=== PATIENT | female | born 2000 | race Caucasian/White ===

== ENCOUNTER 2019-07-28 19:25 | Emergency (ER) | payer MEDICAID ==
[~2019-07-28] VITALS: Ht 152.4 cm; Wt 54.0 kg
[2019-07-28 19:28] VITALS: BP 106/57
--- NOTE | 2019-07-28 19:57 | NUR ---
PT STATES HER LEGS ARE SWOLLEN. HER LEGS ARE MILDY SWOLLEN, NO PAIN. MILD REDNESS, STATES SHE HAD SUNBURN. STATES WHEN SHE SETANDS FOR AWHILE HER LEGS HURT.
== END 2019-07-28 20:06 | disposition home or self-care (01) ==
LOC: ER 19:27
DX: L55.9 Sunburn, unspecified (principal); R22.43 Localized swelling, mass and lump, lower limb, bilateral
CPT/HCPCS: 99282

== ENCOUNTER 2019-11-24 15:45 | Emergency (ER) | payer MEDICAID ==
[~2019-11-24] VITALS: Ht 152.4 cm; Wt 54.1 kg
[2019-11-24 15:55] VITALS: BP 124/82
[2019-11-24 16:46] LABS: CLARITY,URINE CLEAR (Clear); COLOR,URINE STRAW (Yellow); GLUCOSE, URINE NEGATIVE (Neg); KETONES,URINE NEGATIVE (Neg); LEUKOCYTE ESTERASE ,URINE NEGATIVE (Neg); NITRITES, URINE NEGATIVE (Neg); OCCULT BLOOD,URINE NEGATIVE (Neg); PROTEIN,URINE NEGATIVE (Neg); UROBILINOGEN,URINE 0.2 E.U/dL (0.2-1.0)
[2019-11-24 16:51] LABS: UA COLLECTION TYPE CLN CATCH MIDSTREAM
[2019-11-24 16:55] LABS: URINE HCG NEGATIVE (NEG)
[2019-11-24] MEDS ORDERED: ketorolac tromethamine 15mg/ml inj. IM ONE (17:00)
[2019-11-24] MEDS ORDERED: ondansetron 4mg rapidly disintigrating tab PO ONE (17:00)
[2019-11-24] MEDS ORDERED: CYCL-1 PO (17:06)
[2019-11-24] MEDS ORDERED: ONDA4TAB6 PO (17:06)
== END 2019-11-24 17:32 | disposition home or self-care (01) ==
LOC: ER 15:45
DX: M25.50 Pain in unspecified joint (principal); M25.519 Pain in unspecified shoulder; M54.5 Low back pain; R11.2 Nausea with vomiting, unspecified; Z79.899 Other long term (current) drug therapy
CPT/HCPCS: 81003; 81025; 96372; 99283; J1885

== ENCOUNTER 2020-04-27 17:09 | Emergency (ER) | payer MEDICAID, OTHER ==
[~2020-04-27] VITALS: Ht 152.4 cm; Wt 53.1 kg
[~2020-04-27 17:09] MED LIST: CYCL-1 PO; ONDA4TAB6 PO
[2020-04-27 17:13] VITALS: BP 125/90
[2020-04-27] MEDS ORDERED: CYCL-1 PO (18:14)
[2020-04-27] MEDS ORDERED: ketorolac trometh. 30mg/ml inj. IM ONE (18:15)
== END 2020-04-27 18:28 | disposition home or self-care (01) ==
LOC: ER 17:09
DX: R52 Pain, unspecified (principal); M62.838 Other muscle spasm; Z72.89 Other problems related to lifestyle; Z79.899 Other long term (current) drug therapy
CPT/HCPCS: 96372; 99283; J1885

== ENCOUNTER 2020-06-28 08:35 | Emergency (ER) | payer MEDICAID ==
[~2020-06-28] VITALS: Ht 152.4 cm; Wt 50.2 kg
[2020-06-28] MEDS ORDERED: ketorolac tromethamine 15mg/ml inj. IM ONE (09:15)
[2020-06-28] MEDS ORDERED: cyclobenzaprine 10mg tablet PO ONE (09:20)
[2020-06-28 09:24] VITALS: BP 108/64
[2020-06-28] MEDS ORDERED: CYCL-1 PO (09:24)
== END 2020-06-28 09:33 | disposition home or self-care (01) ==
LOC: ER 08:36
DX: M79.18 Myalgia, other site (principal); Z79.899 Other long term (current) drug therapy
CPT/HCPCS: 96372; 99283; J1885

== ENCOUNTER 2020-06-30 10:29 | Emergency (ER) | payer MEDICAID ==
[~2020-06-30] VITALS: Ht 152.4 cm; Wt 51.0 kg
[2020-06-30 10:31] VITALS: BP 119/55
[2020-06-30] MEDS ORDERED: PENI500T2 PO (10:45)
== END 2020-06-30 10:56 | disposition home or self-care (01) ==
LOC: ER 10:30
DX: K04.7 Periapical abscess without sinus (principal); K08.89 Other specified disorders of teeth and supporting structures; Z98.818 Other dental procedure status; Z79.2 Long term (current) use of antibiotics; Z79.899 Other long term (current) drug therapy
CPT/HCPCS: 99283

== ENCOUNTER 2020-10-17 21:03 | Emergency (ER) | payer MEDICAID ==
[~2020-10-17] VITALS: Ht 152.4 cm; Wt 48.7 kg
[2020-10-17 21:15] VITALS: BP 100/47
[2020-10-17 21:45] LABS: URINE HCG NEGATIVE (NEG)
[2020-10-17 21:50] LABS: CLARITY,URINE CLEAR (Clear); COLOR,URINE YELLOW (Yellow); GLUCOSE, URINE NEGATIVE (Neg); KETONES,URINE NEGATIVE (Neg); LEUKOCYTE ESTERASE ,URINE NEGATIVE (Neg); NITRITES, URINE NEGATIVE (Neg); OCCULT BLOOD,URINE TRACE-INTACT (Neg); PH,URINE 5.5 (4.8-8.0); PROTEIN,URINE NEGATIVE (Neg); UROBILINOGEN,URINE 0.2 E.U/dL (0.2-1.0)
[2020-10-17 21:53] LABS: ALANINE AMINOTRANSFERASE 19 U/L (12-78); ALBUMIN 4.2 G/DL (3.4-5.0); ALBUMIN/GLOBULIN RATIO 1.6 (1.1-1.5); ALKALINE PHOSPHATASE 57 IU/L (20-180); ANION GAP 9 (8-16); ASPARTATE AMINO TRANSFERASE 15 U/L (10-37); BASOPHILS # (AUTO) 0.1 X10'3 (0-0.2); BASOPHILS % (AUTO) 0.5 % (0-1); BILIRUBIN,TOTAL 0.3 MG/DL (0.1-1.0); BLOOD UREA NITROGEN 22 MG/DL (7-18); BUN/CREATININE RATIO 21.2 (6.6-38.0); CALCIUM 8.5 MG/DL (8.5-10.1); CHLORIDE 103 MMOL/L (99-107); CREATININE 1.04 MG/DL (0.40-0.90); EOSINOPHILS # (AUTO) 0.2 X10'3 (0-0.9); EOSINOPHILS % (AUTO) 1.6 % (0-6); GLUCOSE 93 MG/DL (70-104); HEMATOCRIT 34.4 % (35.0-45.0); LIPASE 123 U/L (73-393); LYMPHOCYTES # (AUTO) 2.9 X10'3 (1.1-4.8); LYMPHOCYTES % (AUTO) 26.4 % (21-51); MEAN CORPUSCULAR HEMOGLOBIN 31.3 PG (27.0-31.0); MEAN CORPUSCULAR VOLUME 89.6 FL (78-98); MEAN PLATELET VOLUME 9.3 FL (7.4-10.4); MONOCYTES # (AUTO) 0.9 X10'3 (0-0.9); MONOCYTES % (AUTO) 8.2 % (2-12); NEUTROPHILS # (AUTO) 6.9 X10'3 (1.8-7.7); NEUTROPHILS % (AUTO) 63.3 % (42-75); PLATELET COUNT 195 X10'3 (140-440); RED BLOOD COUNT 3.84 X10'6 (4.20-5.60); RED CELL DISTRIBUTION WIDTH 13.3 % (11.5-14.5); SODIUM 139 MMOL/L (135-145); TOTAL CARBON DIOXIDE 27.3 MMOL/L (24-32); TOTAL PROTEIN 6.9 G/DL (6.4-8.2); WHITE BLOOD COUNT 10.8 X10'3 (4.5-11.0); eGFR 68 ML/MIN
[2020-10-17 21:58] LABS: UA COLLECTION TYPE CLN CATCH MIDSTREAM
[2020-10-17 22:00] LABS: BACTERIA,URINE NONE SEEN /HPF (Neg); RBC,URINE 0-2 /HPF (0-2); SQUAMOUS EPITHELIAL CELL,UR FEW /LPF (FEW); WBC,URINE NONE SEEN /HPF (0-4)
[2020-10-17] MEDS ORDERED: dexamethasone sod phosphate 10mg/ml inj PO STA (22:30)
[2020-10-17] MEDS ORDERED: ketorolac trometh. 30mg/ml inj. IM ONE (22:30)
[2020-10-17] MEDS ORDERED: CYCL-1 PO (22:30)
== END 2020-10-17 22:59 | disposition home or self-care (01) ==
LOC: ER 21:03
DX: M25.50 Pain in unspecified joint (principal); R19.7 Diarrhea, unspecified; Z79.899 Other long term (current) drug therapy
CPT/HCPCS: 36415; 80053; 81001; 81025; 83690; 85025; 96372; 99283; J1100; J1885

== ENCOUNTER 2020-10-31 08:27 | Emergency (ER) | payer MEDICAID ==
[~2020-10-31] VITALS: Ht 152.4 cm; Wt 48.0 kg
[2020-10-31 08:33] VITALS: BP 124/77
[2020-10-31] MEDS ORDERED: ketorolac trometh inj. 60 MG/2 ML VIAL IM ONE (10:15)
[2020-10-31] MEDS ORDERED: ketorolac tromethamine 15mg/ml inj. IM ONE (10:15)
[2020-10-31] MEDS ORDERED: DIPH-186 PO (10:32)
== END 2020-10-31 10:46 | disposition home or self-care (01) ==
LOC: ER 08:28
DX: R10.11 Right upper quadrant pain (principal); R19.7 Diarrhea, unspecified; K59.00 Constipation, unspecified; R63.0 Anorexia; Z79.899 Other long term (current) drug therapy
CPT/HCPCS: 96372; 99283; J1885

== ENCOUNTER 2021-06-23 19:10 | Emergency (ER) | payer MEDICAID ==
[~2021-06-23] VITALS: Ht 152.4 cm; Wt 50.0 kg
[~2021-06-23 19:10] MED LIST changes: +DIPH-186 PO
[2021-06-23] MEDS ORDERED: ketorolac trometh inj. 60 MG/2 ML VIAL IM ONE (21:55)
[2021-06-23] MEDS ORDERED: orphenadrine citrate 60mg/2ml inj. IM ONE (21:55)
[2021-06-23] MEDS ORDERED: IBUP-1986 PO (22:54)
[2021-06-23] MEDS ORDERED: CYCL-1 PO (22:54)
[2021-06-23 23:09] VITALS: BP 132/93
== END 2021-06-23 23:11 | disposition home or self-care (01) ==
LOC: ER 19:10
DX: M54.2 Cervicalgia (principal); M54.9 Dorsalgia, unspecified; V89.2XXA Person injured in unspecified motor-vehicle accident, traffic, initial encounter; Y93.89 Activity, other specified; Y92.89 Other specified places as the place of occurrence of the external cause; Y99.8 Other external cause status
CPT/HCPCS: 72125; 96372; 99284; J1885; J2360

== ENCOUNTER 2022-03-09 13:11 | Emergency (ER) | payer MEDICAID ==
[~2022-03-09] VITALS: Ht 152.4 cm; Wt 54.5 kg
[~2022-03-09 13:11] MED LIST changes: +IBUP-1986 PO
[2022-03-09 13:15] VITALS: BP 127/46
[2022-03-09] MEDS ORDERED: HYDROcodone/acetaminophen 5mg/325mg tablet PO STA (13:17)
[2022-03-09] MEDS ORDERED: ACET-1059 PO ×2 (17:14→17:15)
[2022-03-09] MEDS ORDERED: acetaminophen w/codeine (30MG) #3 tablet PO ONE (17:20)
--- NOTE | 2022-03-09 17:25 | NUR ---
MED ORDER POPPED UP AFTER PT WAS D\C'D - PROVIDER AWARE.
== END 2022-03-09 17:26 | disposition home or self-care (01) ==
LOC: ER 13:11
DX: S60.221A Contusion of right hand, initial encounter (principal); W22.8XXA Striking against or struck by other objects, initial encounter; Y93.89 Activity, other specified; Y92.89 Other specified places as the place of occurrence of the external cause; Y99.8 Other external cause status
CPT/HCPCS: 73130; 99283

== ENCOUNTER 2022-04-30 09:24 | Emergency (ER) | payer MEDICAID ==
[~2022-04-30] VITALS: Ht 152.4 cm; Wt 54.0 kg
[~2022-04-30 09:24] MED LIST changes: +ACET-1059 PO
[2022-04-30 09:31] VITALS: BP 122/69
[2022-04-30] MEDS ORDERED: HYDR-3965 PO (10:27)
[2022-04-30] MEDS ORDERED: MELO-100 PO (10:27)
[2022-04-30] MEDS ORDERED: CYCL-1 PO (10:27)
[2022-04-30] MEDS ORDERED: HYDROcodone/acetaminophen 5mg/325mg tablet PO ONE (10:35)
[2022-04-30] MEDS ORDERED: ibuprofen tablet 400 MG TABLET PO ONE (10:35)
[2022-04-30] MEDS ORDERED: ondansetron 4mg rapidly disintigrating tab PO ONE (10:35)
[2022-04-30] MEDS ORDERED: acetaminophen 325mg tablet PO ONE (10:35)
== END 2022-04-30 10:53 | disposition home or self-care (01) ==
LOC: ER 09:24
DX: M43.6 Torticollis (principal); F12.90 Cannabis use, unspecified, uncomplicated
CPT/HCPCS: 99284

== ENCOUNTER 2022-09-19 11:53 | Emergency (ER) | payer MEDICAID ==
[~2022-09-19] VITALS: Ht 152.4 cm; Wt 56.8 kg
[~2022-09-19 11:53] MED LIST changes: +MELO-100 PO
[2022-09-19 12:19] LABS: BASOPHILS # (AUTO) 0.1 X10'3 (0-0.2); BASOPHILS % (AUTO) 0.5 % (0-1); EOSINOPHILS % (AUTO) 0.1 % (0-6); HEMATOCRIT 43.3 % (35.0-45.0); HEMOGLOBIN 14.6 g/dl (12.0-16.0); LYMPHOCYTES # (AUTO) 1.3 X10'3 (1.1-4.8); LYMPHOCYTES % (AUTO) 6.7 % (21-51); MEAN CORPUSCULAR HEMOGLOBIN 31.5 PG (27.0-31.0); MEAN CORPUSCULAR HGB CONC 33.8 g/dL (33.0-36.5); MEAN CORPUSCULAR VOLUME 93.2 FL (78-98); MEAN PLATELET VOLUME 8.9 FL (7.4-10.4); MONOCYTES % (AUTO) 5.4 % (2-12); NEUTROPHILS # (AUTO) 16.7 X10'3 (1.8-7.7); NEUTROPHILS % (AUTO) 87.3 % (42-75); PLATELET COUNT 248 X10'3 (140-440); RED BLOOD COUNT 4.65 X10'6 (4.20-5.60); RED CELL DISTRIBUTION WIDTH 13.5 % (11.5-14.5); WHITE BLOOD COUNT 19.1 X10'3 (4.5-11.0)
[2022-09-19 12:39] LABS: ALANINE AMINOTRANSFERASE 22 U/L (12-78); ALBUMIN 4.5 G/DL (3.4-5.0); ALBUMIN/GLOBULIN RATIO 1.2 (1.1-1.5); ALKALINE PHOSPHATASE 85 IU/L (46-116); ANION GAP 16 (8-16); ASPARTATE AMINO TRANSFERASE 28 U/L (10-37); BILIRUBIN,TOTAL 0.4 MG/DL (0.1-1.0); BLOOD UREA NITROGEN 7 MG/DL (7-18); BUN/CREATININE RATIO 9.7 (10.0-20.0); CALCIUM 9.2 MG/DL (8.5-10.1); CHLORIDE 103 MMOL/L (99-107); CREATININE 0.72 MG/DL (0.40-0.90); GLUCOSE 88 MG/DL (70-104); POTASSIUM 3.8 MMOL/L (3.5-5.1); SODIUM 142 MMOL/L (135-145); TOTAL CARBON DIOXIDE 22.6 MMOL/L (24-32); TOTAL PROTEIN 8.4 G/DL (6.4-8.2); eGFR > 90 ML/MIN
[2022-09-19] MEDS ORDERED: normal saline 1000ML IV soln IVB ONE (12:50)
[2022-09-19 13:20] VITALS: BP 131/79
== END 2022-09-19 13:37 | disposition home or self-care (01) ==
LOC: ER 11:54
DX: S00.531A Contusion of lip, initial encounter (principal); W55.12XA Struck by horse, initial encounter; Y93.89 Activity, other specified; Y92.89 Other specified places as the place of occurrence of the external cause; Y99.8 Other external cause status
CPT/HCPCS: 36415; 70450; 70486; 80053; 83880; 84484; 85025; 93005; 96360; 99284; J7030; 99285